=== PATIENT | female | born 1955 | race Caucasian/White ===

== ENCOUNTER 2020-10-11 15:44 | Outpatient (CLI) | payer MEDICARE, SELFPAY ==
--- NOTE | ~2020-10-11 | XR_ITS ---
EXAMINATION: XR chest 2V EXAM DATE: 10/11/2020 16:00 INDICATION: R05 - Cough, shortness of breath and generalized chest pain. TECHNIQUE: Frontal and lateral projections of the chest obtained and reviewed. There is no prior terri dy for comparison. FINDINGS: The lungs are clear. There are no pleural effusions. The cardiomediastinal silhouette is within normal limits. There is no pneumothorax suspected. Thoracolumbar Solis rods. There is m ild mid thoracic dextroscoliosis. IMPRESSION: No acute cardiopulmonary findings. Reviewed, dictated and finalized at location A.
== END 2020-10-11 15:45 | disposition home or self-care (01) ==
PROVIDERS: PCP Family Medicine; Visit Provider Physician Assistant
DX: R05 Cough (principal); R06.02 Shortness of breath; R07.9 Chest pain, unspecified
CPT/HCPCS: 71046

== ENCOUNTER 2020-11-17 15:23 | Outpatient (CLI) | payer MEDICARE, SELFPAY ==
--- NOTE | 2020-11-17 | ECG_ITS ---
Measurements Intervals [place] Rate: 86 P: 57 OH: 147 QRS: 50 QRSD: 98 T: 45 QT: 372 QTc: 445 Interpretive Statements SINUS RHYTHM BASELINE WANDER- V3 NORMAL ECG Electronically Signed On 11-17-2020 20:42:03 CDT by Calixto Ames D.O.
== END 2020-11-17 15:24 | disposition home or self-care (01) ==
PROVIDERS: PCP Family Medicine; Visit Provider Podiatrist Foot & Ankle Surgery
DX: R03.0 Elevated blood-pressure reading, without diagnosis of hypertension (principal)
CPT/HCPCS: 93005

== ENCOUNTER 2022-03-15 02:01 | Day surgery (SDC) | payer MEDICARE, SELFPAY ==
[2022-03-06 11:12] VITALS: BMI 31.6
[2022-03-15 12:27] VITALS: BP 113/69; PULSE 134; RESP 20; TEMP 36.1; O2SAT 98
[2022-03-15] MEDS: LACTATED RINGERS 1,000 ML 150 ML IV CONT (12:37)
--- NOTE | 2022-03-15 12:41 | WPDANESEPPF ---
Anes - Initial Pre Proc Eval Procedure: Operation Date: 03/15/22 14:00 Proposed Procedures p Screening Colonoscopy - Americo Sin MD Date/Time: 03/15/22 12:41 Surgeon: Americo Sin MD Pre Op Diagnosis: neoplasm screening Patient Data Age: 66 Gender: F Height: 1.73 m Weight: 95.7 kg Last Vital Signs Temp 97.0 F L 03/15/22 12:27 Pulse 134 H 03/15/22 12:27 Resp 20 03/15/22 12:27 BP 113/69 03/15/22 12:27 Pulse Ox 98 03/15/22 12:27 O2 Del Method Room Air 03/15/22 12:27 Allergies Allergy/AdvReac Type Severity Reaction Status Date / Time ciprofloxacin Allergy Intermediate Muscle Pain Verified 03/15/22 12:25 rosuvastatin AdvReac Intermediate Cramping Uncoded 03/15/22 12:25 of the Muscles Home Medications Medication Instructions Recorded Confirmed Type omeprazole 20 mg capsule,delayed 20 mg PO DAILY #90 caps 08/10/20 03/15/22 Rx release ezetimibe 10 mg tablet (Zetia) 10 mg PO DAILY #30 tabs 11/22/21 03/15/22 Rx bupropion HCl 100 mg tablet 100 mg PO DAILY 03/06/22 03/15/22 History cholecalciferol (vitamin D3) 1,250 1,250 mcg PO MONTHLY 03/06/22 03/15/22 History mcg (50,000 unit) capsule liothyronine 5 mcg tablet 5 mcg PO BID 03/06/22 03/15/22 History meloxicam 15 mg tablet 15 mg PO DAILY 03/06/22 03/15/22 History metformin 500 mg tablet See Rx Instructions .Route 03/06/22 03/15/22 Rx .COMPLEX #60 tabs clonazepam 2 mg tablet 2 mg PO Q8H PRN anxiety 30 days 03/08/22 03/15/22 Rx #90 tabs Patient hx anesthesia problems: none Family hx anesthesia problems: none Results Review: All pre-operative results and documents have been reviewed as part of the pre-operative evaluation. [facility] Past Medical History Medical History GERD with esophagitis Hypothyroidism (acquired) Sinus tachycardia TMJ (temporomandibular joint syndrome) Family History Family History Father Family history of malignant neoplasm of brain, Onset Age: 73 Heart disease Mother Cerebrovascular accident Other Thyroid disorder Social History Social History (Updated 12/13/21 @ 15:07 by Melissa Medina) Social History: Smoking status: Never smoker Second hand tobacco smoke exposure: No Alcohol intake: never Substance use: former Substance use type: marijuana Living arrangements: with family Gender identity (if verbalized by the patient): Female Sexual Orientation (if Verbalized by the Patient): Straight or Heterosexual Spiritual care concerns: No Anes - Eval Final PreProcedure Day of Procedure 03/15/22 12:41 Patient weight: obese Heart: regular rate and rhythm Lungs: clear to auscultation Airway: Mallampati scale class II Neurological: alert and oriented Last oral intake: >/= 8 hours ASA classification: III Emergent: no Anesthetic plan: proceed Anesthesia type and monitoring: general GIVS and standard monitoring Results Review: All pre-operative results and documents have been reviewed as part of the pre-operative evaluation. Informed Consent: The patient's anesthetic plan and its attendant risks and benefits were discussed with the patient/family/POA. Questions were solicited and answers provided to the satisfaction of the patient/family/POA.
--- NOTE | 2022-03-15 12:50 | PM.HPGS ---
History of Present Illness History of Present Illness Consent: Risks, benefits, and alternatives have been discussed and questions answered. Patient agrees to proceed with procedure. Chief complaint: neoplasm screening Narrative: Sari Borges is a 66 year old female with last colonoscopy 9 years ago, also constipation since she had back surgery, rocio did not work Review of Systems Constitutional: Constitutional: Denies headache(s) and Denies weakness Eyes: Eyes: Denies blurry vision ENT: Reports Normal hearing present, Denies headache(s) and Denies neck pain Cardiovascular: Cardiovascular: Denies chest pain and Denies dyspnea Respiratory: Respiratory: Denies dyspnea Gastrointestinal: Gastrointestinal: Reports no additional gastrointestinal complaints Genitourinary: Genitourinary: Denies dysuria Musculoskeletal: Musculoskeletal: Denies neck pain Integumentary/Breasts: Skin/Breast: Denies dry skin Neurologic: Reports Normal hearing present, Denies headache(s) and Denies weakness Psychiatric: Psychiatric: Denies anxiety Endocrine: Endocrine: Denies change in body appearance Hematologic/Lymphatic: Hematologic/Lymphatic: Denies easy bleeding Allergic/Immunologic: Allergic/Immunologic: Denies urticaria PMFSH Past Medical History Medical History GERD with esophagitis Hypothyroidism (acquired) Sinus tachycardia TMJ (temporomandibular joint syndrome) Family History Family History Father Family history of malignant neoplasm of brain, Onset Age: 73 Heart disease Mother Cerebrovascular accident Other Thyroid disorder Social History Social History (Updated 12/13/21 @ 15:07 by Melissa Medina) Social History: Smoking status: Never smoker Second hand tobacco smoke exposure: No Alcohol intake: never Substance use: former Substance use type: marijuana Living arrangements: with family Gender identity (if verbalized by the patient): Female Sexual Orientation (if Verbalized by the Patient): Straight or Heterosexual Spiritual care concerns: No Meds Home Medications and Allergies Home Medications Medication Instructions Recorded Confirmed Type omeprazole 20 mg capsule,delayed 20 mg PO DAILY #90 caps 08/10/20 03/15/22 Rx release ezetimibe 10 mg tablet (Zetia) 10 mg PO DAILY #30 tabs 11/22/21 03/15/22 Rx bupropion HCl 100 mg tablet 100 mg PO DAILY 03/06/22 03/15/22 History cholecalciferol (vitamin D3) 1,250 1,250 mcg PO MONTHLY 03/06/22 03/15/22 History mcg (50,000 unit) capsule liothyronine 5 mcg tablet 5 mcg PO BID 03/06/22 03/15/22 History meloxicam 15 mg tablet 15 mg PO DAILY 03/06/22 03/15/22 History metformin 500 mg tablet See Rx Instructions .Route 03/06/22 03/15/22 Rx .COMPLEX #60 tabs clonazepam 2 mg tablet 2 mg PO Q8H PRN anxiety 30 days 03/08/22 03/15/22 Rx #90 tabs Allergies Allergy/AdvReac Type Severity Reaction Status Date / Time ciprofloxacin Allergy Intermediate Muscle Pain Verified 03/15/22 12:25 rosuvastatin AdvReac Intermediate Cramping Uncoded 03/15/22 12:25 of the Muscles Vital Signs Vital Signs - 24 hr 03/15/22 12:27 Temperature 97.0 F L Pulse Rate 134 H Respiratory Rate 20 Blood Pressure 113/69 Pulse Oximetry 98 Oxygen Delivery Room Air Exam Const: General: comfortable and no acute distress HENMT: Face/Nose/Sinus: Normal nares present Eyes: General: appearance normal, both eyes and all related structures Neck: Neck: no JVD Resp: Auscultation: clear to auscultation bilaterally Cardio: Rate: regular rate Rhythm: regular rhythm GI: Inspection: non-distended GI Palp: Yes Soft to palpation Skin: General skin exam: normal color Neuro: General: gait normal Speech: normal speech Extrem: General: normal to inspection Psych: Mental Status: mental status grossly lilo
[2022-03-15 13:14] VITALS: BP 100/56; PULSE 86; RESP 23; O2SAT 97
[2022-03-15 13:24] VITALS: BP 121/98; PULSE 85; RESP 21; O2SAT 97
[2022-03-15 13:34] VITALS: BP 108/54; PULSE 84; RESP 25; O2SAT 97
== END 2022-03-15 13:51 | disposition home or self-care (01) ==
PROVIDERS: PCP Family Medicine; Visit Provider Internal Medicine Gastroenterology
PROC: 0DJD8ZZ Inspection of Lower Intestinal Tract, Via Natural or Artificial Opening Endoscopic (ICD-10-PCS; CPT 45378; principal; 2022-03-15 14:00)
DX: Z12.11 Encounter for screening for malignant neoplasm of colon (principal); D12.2 Benign neoplasm of ascending colon; D12.3 Benign neoplasm of transverse colon; D12.5 Benign neoplasm of sigmoid colon; K59.00 Constipation, unspecified; K57.30 Diverticulosis of large intestine without perforation or abscess without bleeding; K64.8 Other hemorrhoids; E03.9 Hypothyroidism, unspecified; K21.9 Gastro-esophageal reflux disease without esophagitis; Z79.84 Long term (current) use of oral hypoglycemic drugs; E66.9 Obesity, unspecified; Z68.32 Body mass index [BMI] 32.0-32.9, adult
CPT/HCPCS: 45385; 88305; J2704; J7120